=== PATIENT | male | born 1955 | race Caucasian/White ===

== ENCOUNTER 2020-07-18 07:46 | Day surgery (SDC) | payer BC ==
[~2020-07-18] VITALS: Ht 180.3 cm; Wt 58.8 kg
--- NOTE | ~2020-07-18 | HEMODYNAMI ---
PATIENT:CESAR JJ MEDICAL RECORD: [id number] : 57 LOCATION:D.CAT ADMISSION DATE: 07/18/20 Generatedon:110:56 Patient name: CESAR JJ Patient #: [id number] SSN: [id number] : 1955 Date of study: 07/18/2020 Page: Of Hemodynamic Procedure Report Patient Data Patient Demographics Procedure consent was obtained First Name: CESAR Gender: Male Last Name: PARVIZ : 1955 [facility] Initial: ODETTE Age: 65 year(s) Patient #: [id number] Race: SSN: [id number] Additional ID: [id number] Contact details [address]: [address] [place] [address] [place] State: [place] City: [place] Zip code: [address] Past Medical History Allergies: No known allergies Admission Admission Data Admission Date: 07/18/2020 Admission Time: 7:46 Arrival Date: 07/18/2020 Arrival Time: 0:00 Admit Source: Other Insurance Payor: Private health insurance [facility] #: [id number] Height (in.): 24.41 BSA: 1.13 (m2) Height (cm.): 62 BMI: 335.59 (kg/m2) Weight (lbs.): 284.4 Weight (kg.): 129 Lab Results Lab Result Date: 07/18/2020 Lab Result Time: 0:00 Biochemistry Name Units Result Min Max BUN mg/dl 17 --(---*)-- 7 18 Creatinine mg/dl 1.1 --(--*-)-- 0.6 1.3 eGFR ml/min 70.32204 *-(----)-- 90 120 NONAFRICAN CBC Name Units Result Min Max Hematocrit % 40.1 -*(----)-- 42 54 Hemoglobin g/dl 13.8 --(*---)-- 13.5 17.5 Procedure Procedure Types Cath Procedure Sedation Charges Moderate Sedation 55-69 minutes Peripheral Cath Diagnostic Procedure Psych Coordinator Peripheral Procedures AFRO Diagnostic Peripheral vascular Intervention Lithotripsy Litho W Grinder And Honer Operator Automatic Procedure Description Procedure Date Procedure Date: 07/18/2020 Procedure Start Time: 10:01 Procedure End Time: 10:55 Procedure Staff Name Function Pradeep Gamez MD Performing Physician Ashley Rodrigues RT Monitor Betty Francis RT Scrub Xavier Tirado RN Nurse Procedure Data Cath Procedure Fluoroscopy Diagnostic fluoroscopy Total fluoroscopy Time: time: 12.3 min 12.3 min Diagnostic fluoroscopy Total fluoroscopy dose: 117 dose: 117 mGy mGy Contrast Material Contrast Material Type Amount (ml) Isovue 370 100 Entry Location Entry Primary Successful Side Size Upsize Upsize Entry Closure Succes sful Closure Location (Fr) 1 (Fr) 2 (Fr) Remarks Device Remarks Femoral Left 5 Fr 6 Fr 6 Fr Exoseal artery Long Short Estimated blood loss: 10 ml Diagnostic catheters Device Type Used For End Catheter Placement DIAGNOSTIC UF 5Fr Procedure catheter ([id number]) Procedure Complications No complications Procedure Medications Medication Administration Route Dosage Oxygen etCO2 Nasal cannula 2 l/min Lidocaine 2% added to field 20 Heparin Flush Bag added to field 2 bags (1000units/500ml NS) 0.9% NaCl I.V. 100 ml/hr Versed I.V. 1 mg Fentanyl I.V. 50 mcg Versed I.V. 1 mg Fentanyl I.V. 50 mcg Versed I.V. 1 mg Fentanyl I.V. 50 mcg Heparin Bolus I.V. 3000 units Heparin Bolus I.V. 2000 units Versed I.V. 1 mg Fentanyl I.V. 50 mcg Heparin Bolus I.V. 1000 units Plavix P.O. 600 mg Hemodynamics Rest BSA: 1.13 (m2) HGB: 13.8 (g/dl) O2 Consumption: Estimated: 128.6 (ml/min) O2 Con sumption indexed: Estimated:113.81 (ml/min/m) Heart Rate: 62 (bpm) Snapshots Pre Cath Intra NCS Post Cath Vital Signs Time Heart Resp SPO2 etCO2 NIBP (mmHg) Rhythm Pain Sedation Rate (ipm) (%) (mmHg) Status Level (bpm) 9:45:20 62 10 100 0 185/94(155) NSR 0 (11) 10(A) , No pain 9:49:40 61 13 100 34.8 126/73(92) NSR 0 (11) 10(A) , No pain 9:53:56 57 13 100 30.2 126/68(97) NSR 0 (11) 10(A) , No pain 9:58:10 56 13 100 35.5 128/70(99) NSR 0 (11) 10(A) , No pain 10:02:28 58 10 100 31 112/62(73) NSR 0 (11) 9(A) , No pain 10:06:40 59 16 100 33.2 109/58(73) NSR 0 (11) 9(A) , No pain 10:10:50 59 10 100 34.7 107/64(83) NSR 0 (11) 9(A) , No pain 10:15:00 56 12 100 39.3 107/64(80) NSR 0 (11) 9(A) , No pain 10:19:12 59 10 100 37.1 107/56(85) NSR 0 (11) 9(A) , No pain 10:23:22 59 10 100 37.8 100/61(79) NSR 0 (11) 9(A) , No pain 10:28:19 57 12 100 37.1 121/63(94) NSR 0 (11) 9(A) , No pain 10:32:35 62 11 100 37.8 111/57(80) NSR 0 (11) 9(A) , No pain 10:36:44 68 10 100 37.8 117/65(81) NSR 0 (11) 9(A) , No pain 10:40:59 62 14 100 36.3 118/59(85) NSR 0 (11) 9(A) , No pain 10:45:12 63 13 100 36.3 114/62(90) NSR 0 (11) 10(A) , No pain 10:49:26 55 18 100 33.3 107/57(72) NSR 0 (11) 10(A) , No pain 10:53:36 52 11 100 34 120/61(80) NSR 0 (11) 10(A) , No pain Medications Time Medication Route Dose Verified Delivered Reason Notes Effectiveness by by 9:48:13 Oxygen etCO2 2 Pradeep Buffie used for Nasal l/min Franco Tirado circular stuffer cannula 9:48:21 Lidocaine 2% added 20ml Pradeep Pradeep for local to vial Franco Gamez MD anesthetic field 9:51:34 Heparin Flush added 2 Pradeep Pradeep used for Bag to bags Franco Gamez MD procedure (1000units/500ml field NS) 9:51:48 0.9% NaCl I.V. 100 Pradeep Buffie Per physician ml/hr Franco Tirado RN 9:55:43 Versed I.V. 1 mg Pradeep Buffie for sedation Franco Tirado RN 9:55:49 Fentanyl I.V. 50 Pradeep Buffie for sedation mcg Franco Tirado RN 10:03:11 Versed I.V. 1 mg Pradeep Buffie for sedation Franco Tirado RN 10:03:15 Fentanyl I.V. 50 Pradeep Buffie for sedation mcg Franco Tirado RN 10:09:23 Versed I.V. 1 mg Pradeep Buffie for sedation Franco Tirado RN 10:09:27 Fentanyl I.V. 50 Pradeep Buffie for sedation mcg Franco Tirado RN 10:18:10 Heparin Bolus I.V. 3000 Pradeep Buffie for verif ied units Franco Tirado RN anticoagulation with dr gamez 10:24:06 Heparin Bolus I.V. 2000 Pradeep Buffie for verif ied units Franco Tirado RN anticoagulation with dr gamez 10:27:20 Versed I.V. 1 mg Pradeep Buffie for sedation Franco Tirado RN 10:31:40 Fentanyl I.V. 50 Pradeep Buffie for sedation mcg Franco Tirado RN 10:44:51 Heparin Bolus I.V. 1000 Pradeep Buffie for verif ied units Franco Tirado RN anticoagulation with dr gamez 10:53:55 Plavix P.O. 600 Pradeep Buffie for mg Franco Tirado RN antiplatelet therapy Procedure Log Time Note 9:03:21 Arrival Date: 07/18/2020 12:00:00 AM 9:03:38 Admit Source: Other 9:03:43 Insurance Payor : Private health insurance 9:04:57 Patient Height : 24.41 inches 9:05:07 Patient Weight : 284.4 lbs 9:29:04 Betty JOHNSON(R) sent for patient. Start room use. 9:31:06 Lab Result : eGFR NONAFRICAN 70.13462 ml/min 9:31:06 Lab Result : BUN 17 mg/dl 9:: Lab Result : Creatinine 1.1 mg/dl 9:: Lab Result : Hemoglobin 13.8 g/dl 9:31:06 Lab Result : Hematocrit 40.1 % 9:32:13 Informed consent obtained and on chart 9:32:34 Diagnostic Cath Status : Elective 9:32:49 ACC Patient presents with Stable Angina CCS Anginal Class 2--Slight limitation of ordinary activity. 9:32:56 Procedure Status Peripheral. 9:32:58 Time tracking: Regular hours (M-F 7:00 - 5:00) 9:33:02 Plan of Care:Hemodynamics will remain stable., Cardiac rhythm will remain stable., Comfort level will be maintained., Respiratory function will remain adequate., Patient/ family verbilizes understanding of procedure., Procedure tolerated without complication., Recovers from procedure without complications.. 9:33:15 Patient received from Pre/Post Procedure Room to CCL 1 Alert and oriented. Tansferred to table in Supine position. 9:33:16 Warm blankets applied, and madelaine hugger turned on for patient comfort. 9:33:17 Correct patient and procedure confirmed by team. 9:33:17 ECG and BP/O2 sat monitors applied to patient. 9:44:04 Vital chart was started 9:44:05 Full Disclosure recording started 9:44:14 H&P Date Dictated: 06/30/2020 Within 30 days and on chart.. 9:44:15 Pre-procedure instructions explained to patient. 9:44:15 Pre-op teaching completed and patient verbalized understanding. 9:44:17 Family in waiting room. 9:44:19 Patient NPO since Midnight. 9:44:24 Patient allergic to No known allergies 9:44:31 Is the patient allergic to Iodine/contrast media? No. 9:44:32 Was the patient premedicated? Yes 9:44:34 Is patient on blood thinner?No 9:44:36 Patient diabetic? No. 9:44:37 If diabetic: On Metformin? N/A 9:44:39 ----Pre-sedation anethsthesia assessment.---- 9:44:41 Previous problem with sedation/anesthesia? No ? 9:44:42 Snore? Yes 9:44:45 Sleep apnea? No 9:44:46 Deviated septum? No 9:44:47 Opens mouth fully? Yes 9:44:49 Sticks out tongue? Yes 9:44:51 Airway obstruction? No ? 9:44:53 Dentures? No ? 9:44:58 Pre procedure: right dorsailis pedis pulse 1+ Palpable, but thready & weak; easily obliterated 9:45:00 Patient pain scale 0/10 ?. 9:45:05 IV patent on arrival in left antecubital with 0.9% NaCl at [facility]. 9:45:08 Lab results completed and on chart. 9:45:15 Bilateral groins area was prepped with chlora-prep and draped in sterile fashion 9:45:17 Stress Test: no; N/A ? 9:45:19 Alarms reviewed by R. N. 9:45:19 Sharps counted by scrub and verified by R.N. 9:45:23 Use device set Femoral Dx 9:45:24 ACIST Syringe (87742) opened to sterile field. 9:45:25 Bag Decanter (2002S) opened to sterile field. 9:45:25 Medline Cath Pack ([id number]) opened to sterile field. 9:45:26 ACIST Hand Control (46086) opened to sterile field. 9:45:27 ACIST Manifold (80645) opened to sterile field. 9:45:27 DIAGNOSTIC Multipack 5Fr catheter set ([id number]) opened to sterile field. 9:45:29 SHEATH 5FR [place] (CRS841) opened to sterile field. 9:45:29 EMERALD Guide Wire (713-326) opened to sterile field. 9:45:31 Tegaderm 4 x 4 (1626W) opened to sterile field. 9:45:37 Baseline sample Acquired. 9:45:41 Rhythm: sinus rhythm 9:48:13 Oxygen 2 l/min etCO2 Nasal cannula was administered by Xavier Tirado RN; used for procedure; Verbal order read back and verified. 9:48:21 Lidocaine 2% 20ml vial added to field was administered by Pradeep Gamez MD; for local anesthetic; Verbal order read back and verified. 9:51:34 Heparin Flush Bag (1000units/500ml NS) 2 bags added to field was administered by Pradeep Gamez MD; used for procedure; Verbal order read back and verified. 9:51:48 0.9% NaCl 100 ml/hr I.V. was administered by Xavier Tirado RN; Per physician; Verbal order read back and verified. 9:54:44 --------ALL STOP TIME OUT------ 9:54:45 Final Timeout: patient, procedure, and site verified with staff and physician. All members of the team are in agreement. 9:54:51 Bilateral groins site verified by team. 9:54:55 Fire Safety Assessment: A--An alcohol-based skin anteseptic being used preoperatively., C--Open oxygen or nitrous oxide is being used., D--An ESU, laser, or fiber-optic light is being used. 9:54:59 Physical assessment completed. ASA score P 2 - A patient with mild systemic disease as per Pradeep Gamez MD. 9:55:02 2) 60-89 Mildly reduced kidney function, and other findings (as for stage 1) point to kidney disease. 9:55:34 Maximum allowable contrast dose (3.7 X eGFR X 0.75)194 ml. 9:55:37 Sedation plan: IV Moderate Sedation Medication:Versed, Fentanyl 9:55:43 Versed 1 mg I.V. was administered by Xavier Tirado RN; for sedation; Verbal order read back and verified. 9:55:49 Fentanyl 50 mcg I.V. was administered by Xavier Tirado RN; for sedation; Verbal order read back and verified. 9:58:53 Procedure started. 10:01:23 Local anesthetic to left femerol artery with Lidocaine 2% by Pradeep Gamez MD.INITIAL ACCESS ONLY 10:03:11 Versed 1 mg I.V. was administered by Xavier Tirado RN; for sedation; Verbal order read back and verified. 10:03:15 Fentanyl 50 mcg I.V. was administered by Xavier Tirado RN; for sedation; Verbal order read back and verified. 10:03:31 A 5 Fr sheath was inserted into the Left Femoral artery 10:03:37 A DIAGNOSTIC UF 5Fr catheter ([id number]) was advanced over the wire and used for Procedure. 10:05:41 Abdominal Aortagram was performed. 10:05:44 Left leg runoff performed. 10:06:18 Right leg runoff performed. 10:06:26 Injector settings: Ml/sec: 10, Volume: 20, 10:08:51 SHEATH 6FR [place] (ZXR133) opened to sterile field. 10:09:01 TUBING High Pressure Extension Tubing (Franco) ([id number]) opened to sterile field. 10::14 Sheath upsized to a 6 Fr Long. 10::23 Versed 1 mg I.V. was administered by Xavier Tirado RN; for sedation; Verbal order read back and verified. 10::27 Fentanyl 50 mcg I.V. was administered by Xavier Tirado RN; for sedation; Verbal order read back and verified. 10:13:07 Asahi Minamo 300cm wire opened to sterile field. 10:13:47 INFLATOR Merit BasixCompak (MJ7041) opened to sterile field. 10:14:34 asahi minamo 300 wire advanced. 10:14:38 Wire removed. 10:18:10 Heparin Bolus 3000 units I.V. was administered by Xavier Tirado RN; for anticoagulation; verified with dr gamez Verbal order read back and verified. 10:21:20 CXI SUPPORT .035 135 CM STR catheter ([id number]) opened to sterile field. 10:21:59 4 Fr CXI .035 guide catheter was inserted over the wire 10:22:33 CHOICE PT Extra Support J 300cm guide wire ([id number]) opened to sterile field. 10:24:06 Heparin Bolus 2000 units I.V. was administered by Xavier Tirado RN; for anticoagulation; verified with dr gamez Verbal order read back and verified. 10:24:28 Wire removed. 10:24:36 ASHAI MINAMO 300 wire advanced. 10:26:21 Guide catheter removed. 10:27:20 Versed 1 mg I.V. was administered by Xavier Tirado RN; for sedation; Verbal order read back and verified. 10:31:40 Fentanyl 50 mcg I.V. was administered by Xavier Tirado RN; for sedation; Verbal order read back and verified. 10:36:14 Inflate balloon Inflation number: 1 A SHOCKWAVE BALLOON 5.5 X 60 ([id number]) was prepped and advanced across the Mid Superficial Femoral, Right , then inflated to 4 MARIANELA for 0:55 (min:sec) . 10:36:52 Inflation number: 2 The SHOCKWAVE BALLOON 5.5 X 60 ([id number]) was reinflated across the Mid Superficial Femoral, Right , to 4 MARIANELA for 0:30 (min:sec) . 10:38:25 Inflation number: 3 The SHOCKWAVE BALLOON 5.5 X 60 ([id number]) was reinflated across the Mid Superficial Femoral, Right , to 4 MARIANELA for 0:40 (min:sec) . 10:39:13 Inflation number: 4 The SHOCKWAVE BALLOON 5.5 X 60 ([id number]) was reinflated across the Mid Superficial Femoral, Right , to 4 MARIANELA for 0:35 (min:sec) . 10:40:40 Balloon removed over the wire. 10:44:51 Heparin Bolus 1000 units I.V. was administered by Xavier Tirado RN; for anticoagulation; verified with dr gamez Verbal order read back and verified. 10:45:18 Inflation number: 5 The SHOCKWAVE BALLOON 5.5 X 60 ([id number]) was reinflated across the Mid Superficial Femoral, Right , to 4 MARIANELA for 0:44 (min:sec) . 10:46:00 Inflation number: 6 The SHOCKWAVE BALLOON 5.5 X 60 ([id number]) was reinflated across the Mid Superficial Femoral, Right , to 4 MARIANELA for 0:31 (min:sec) . 10:46:26 Balloon removed over the wire. 10:48:29 Wire removed. 10:50:00 EXOSEAL 5Fr (EX500) opened to sterile field. 10:50:21 Sheath upsized to a 6 Fr Short. 10:50:31 Sheath removed intact; hemostasis achieved with Exoseal to the Left Femoral artery. 10:50:38 Fluoroscopy time 12.30 minutes. 10:50:41 Fluoroscopy dose: 117 mGy 10:50:41 Flurop Dose total: 117 10:50:47 Dose Area Product 9103 mGy/cm. 10:50:51 Sharps counted by scrub and verified by R.N. 10:51:12 Contrast amount:Isovue 370 100ml. 10:51:14 Maximum allowable dose exceeded? No. 10:51:35 Procedure ended.(Physican Out) 10:51:50 Post-op/insertion site Left Femoral artery dressed using a 4 x 4 and Tegaderm. 10:51:58 Post left femerol artery:stable, soft, clean and dry 10:52:00 Post Procedure Pulses reassessed and unchanged 10:52:03 Post procedure: right dorsailis pedis pulse 1+ Palpable, but thready & weak; easily obliterated. 10:52:07 Post-procedure physical assessment completed. ASA score P 2 - A patient with mild systemic disease as per Pradeep Gamez MD. 10:52:09 Post procedure rhythm: unchanged. 10:52:12 Estimated blood loss: 10 ml 10:52:13 Post procedure instruction explained to patient.Patient verbalizes understanding. 10:52:14 Patient needs reinforcement of post procedure teaching. 10:53:00 Procedure type changed to Cath procedure, Sedation Charges, Moderate Sedation 55-69 minutes, Peripheral Cath Diagnostic Procedure, Psych Coordinator Peripheral Procedures, AFRO Diagnostic, Peripheral vascular Intervention, Lithotripsy, Litho W Grinder And Honer Operator Automatic 10:53:55 Plavix 600 mg P.O. was administered by Xavier Tirado RN; for antiplatelet therapy; Verbal order read back and verified. 10:55:12 ACT drawn and resulted at 286 seconds. (normal therapeutic range 180-240 seconds). 10:55:12 Procedure and supply charges have been captured, reviewed, submitted and are correct. 10:55:16 Procedure Complication : No complications 10:55:18 Vital chart was stopped 10:55:24 AFRO Findings: PVD: OUTSOLE TACKER performed (see procedure notes) 10:55:26 Operative report dictated upon procedure completion. 10:55:27 See physician's report for complete and final results. 10:55:28 Report given to Pre/Post Procedure Room. 10:55:32 Patient transfered to Pre/Post Procedure Room with Stretcher. 10:55:35 Procedure ended. 10:55:35 Full Disclosure recording stopped 10:55:51 ACC-PCI Only Patient was given prescriptions, or instructed by Pradeep Gamez MD to start/continue the following medications upon discharge: Plavix 10:55:53 End room use (Document Last) 10:56:03 End room use (Document Last) 10:56:23 End room use (Document Last) Intervention Summary Intervention Notes Time ActionType Lesion and Equipment Used Action# Pressure Duration Attributes 10:36:14 Inflate Mid SHOCKWAVE BALLOON 1 4 00:55 balloon Superficial 5.5 X 60 Femoral, ([id number]) Right 10:36:52 Reinflate Mid SHOCKWAVE BALLOON 2 4 00:30 balloon Superficial 5.5 X 60 Femoral, ([id number]) Right 10:38:25 Reinflate Mid SHOCKWAVE BALLOON 3 4 00:40 balloon Superficial 5.5 X 60 Femoral, ([id number]) Right 10:39:13 Reinflate Mid SHOCKWAVE BALLOON 4 4 00:35 balloon Superficial 5.5 X 60 Femoral, ([id number]) Right 10:45:18 Reinflate Mid SHOCKWAVE BALLOON 5 4 00:44 balloon Superficial 5.5 X 60 Femoral, ([id number]) Right 10:46:00 Reinflate Mid SHOCKWAVE BALLOON 6 4 00:31 balloon Superficial 5.5 X 60 Femoral, ([id number]) Right Device Usage Item Name Manufacture Quantity Catalog Number Hospital Part Curr ent Minimal Lot# / Charge Number Stock Stock Serial# Code ACIST Syringe Acist 1 08878 323074 065968 3731 47 20 (07407) [employer] Bag Decanter Microtek 1 214909 42284 9830 28 5 () Medical Inc. Medline Cath Pack Medline 1 [id number] 837112 18718 9854 63 5 ([id number]) ACIST Hand Acist 1 95920 257312 539744 9739 78 5 Control (87035) [employer] ACIST Manifold Acist 1 89032 729911 925500 1855 93 5 (72192) [employer] Inc DIAGNOSTIC Cardinal 1 [id number] 764551 45309 9929 48 30 Multipack 5Fr Health catheter set (YK7752) SHEATH 5FR Terumo 1 [id number] 133002 748069 6605 51 5 [place] (BYV114) EMERALD Guide Cardinal 1 502-455 584384 900634 4860 33 5 Wire (283-223) Health Tegaderm 4 x 4 3M 1 1626W 894663 617422 3844 60 5 (1626W) DIAGNOSTIC UF 5Fr Cardinal 1 [id number] 090979 210490 1209 15 10 catheter Health (395687Y5) SHEATH 6FR Terumo 1 QLI198 527210 841138 9334 41 40 [place] (LFJ086) TUBING High Merit 1 [id number] 197613 89525 9989 42 10 Pressure Medical Extension Tubing (Gamez) (RF9957X) Asahi Minamo Asahi Intecc 1 [id number] 502092 7177376 1099 40 0 300cm wire INFLATOR Merit Merit 1 PX7315 142620 707033 5124 44 15 [facility] (QN1643) CXI SUPPORT .035 Cook Medical 1 I25459 258667 172620 7211 14 5 135 CM STR catheter (L44800) CHOICE PT Extra Clifton 1 [id number] 738877 1964 96 5 Support J 300cm Scientific guide wire (3109435W0) SHOCKWAVE BALLOON SHOCKWAVE 1 [id number] 668567 6982738 9999 997 1 5.5 X 60 MEDICAL ([id number]) EXOSEAL 5Fr Cardinal 1 EX500 817581 693196 7985 74 10 (EX500) Health Signature Audit Vest Stage Time Signature Unsigned Intra-Procedure 07/18/2020 Ashley Rodrigues 10:56:03 AM RT(R) Intra-Procedure 07/18/2020 Xavier Tirado RN 10:56:23 AM Intra-Procedure 07/18/2020 Pradeep Gamez MD 10:56:39 AM [facility] [address] [place] [address]
[2020-07-18 08:25] LABS: BASOPHILS 0.8 % (0-2); HEMATOCRIT 40.1 % (42.0-54.0); HEMOGLOBIN 13.8 g/dL (13.5-17.5); IMMATURE GRANULOCYTES 0.2 % (0-5); LYMPHOCYTE ABS# 1.12 10x3/uL (1.32-3.57); LYMPHOCYTES 22.6 % (15-50); MCH 32.4 pg (26.0-34.0); MCHC 34.4 g/dL (31.0-37.0); MCV 94.1 fL (80.0-100.0); MEAN PLATELET VOLUME 9.6 fL (7.4-10.4); MONOCYTES 7.9 % (2-11); NEUTROPHIL ABS# 3.24 10x3/uL (1.78-5.38); NEUTROPHILS 65.5 % (40-80); PLATELET COUNT 175 10x3/uL (130-400); RBC 4.26 10x6/uL (4.20-6.10); RDW 12.8 % (11.5-14.5)
[2020-07-18 08:35] VITALS: BP 173/77; Ht 180.3 cm; Wt 58.8 kg
[2020-07-18 08:44] LABS: ANION GAP 9.6 mmol/L (8-16); CALCIUM 8.6 mg/dL (8.5-10.1); CARBON DIOXIDE 28.7 mmol/L (21.0-32.0); CHOL - HDL RATIO 1.8 ratio (2.3-4.9); CREATININE - SERUM 1.1 mg/dL (0.6-1.3); LDL-HDL RATIO 0.8 ratio (1.5-3.5); POTASSIUM - SERUM 4.3 mmol/L (3.5-5.1)
[2020-07-18] MEDS ORDERED: LISINOPRIL10 MG PO (08:53)
--- NOTE | 2020-07-18 11:20 | NUR ---
PT ARRIVES TO ROOM 3 VIA STRETCHER AAOX3, PLACED ON MONITORS ALARMS ON SB NO ECTOPY, SEE ESCALATOR MECHANIC, PT DENIES PAIN OR NEEDS, SPOUSE AT BEDSIDE BOTH ARE UPDATED ON PLAN OF CARE AND TIME FRAME, PT EDUCATED ON LAYING SUPINE AND HEAD ON PILLOW. SIDE RAILS UP AND CALL LIGHT WITH IN REACH
--- NOTE | 2020-07-18 11:35 | NUR ---
EYES CLOSED AROUSES EASILY, DENIES PAIN OR NEEDS, SIPS OF SPRITE OFFERED, VSS, SB , IV INFUSING PER ORDERS, LEFT GROIN SOFT NO OOZING OR BLEEDING OPSITE C/D/I, LEFT LOWER EXTREMITY WARM PEDAL PULSE PALPABLE CAP REFILL WNL, MOVES ALL DIGITS, RIGHT LOWER EXTREMITY WARM AND POSTERIOR TIBIAL PULSE PALPABLE , CAP REFILL WNL. CALL LIGHT WITH IN REACH, URINAL PLACED AT BEDSIDE SPOUSE TO ASSIST IF NEEDED
[2020-07-18] MEDS ORDERED: PLAVIX75 MG PO (11:45)
--- NOTE | 2020-07-18 11:55 | NUR ---
PT RESTING QUIETLY, VSS, SB , LEFT GROIN SOFT WITH NO OOZING OR BLEEDING OR PALPABLE HEMATOMA, EXTREMITY WARM WITHOUT PAIN, PEDAL PULSE PALPABLE, IV INFUSING PER ORDERS, PT DENIES PAIN OR NEEDS, PLAN OF CARE REVIEWED WITH SPOUSE AND PT WITH TIME FRAMES FOR LAYING SUPINE, DENIES BATHROOM NEEDS, CALL LIGHT WITHIN REACH.
--- NOTE | 2020-07-18 12:10 | NUR ---
PT REPOSITONED FOR COMFORT, SUPINE WITH HEAD ON PILLOW, VSS, SB, LEFT GROIN OPSITE C/D/I, NO OOZING OR BLEEDING , NO PALPABLE HEMATOMA, EXTREMITY WARM SENSATION INTACT, PEDAL PULSE PALPABLE, IV INFUSING PER ORDERS, DENIES PAIN OR NEEDS AT PRESENT, CALL LIGHT WITHIN REACH
--- NOTE | 2020-07-18 12:40 | NUR ---
NO CHANGE, RESTING QUIETLY, EASILY AROUSED TO VERBAL, VSS, SB, SATS 100 ON RA RESPIRATIONS WITH EASE, LEFT GROIN SOFT WITH NO PALPABLE HEMATOMA , OPSITE C/D/I, PEDAL PULSE PALPABLE, CAP REFILL WNL, IV INFUSING VIA LEFT FA PIV , DENIES PAIN OR NEEDS, CALL LIGHT WITH IN REACH, SIPS OF SPRITE OFFERED.
--- NOTE | 2020-07-18 13:10 | NUR ---
DR WEATHERS AT BEDSIDE TO SEE PT, NO NEW ORDERS RECIEVED
--- NOTE | 2020-07-18 13:40 | NUR ---
PT WATCHING T.V, NO NEEDS OR PAIN, VSS, SB, LEFT GROIN SOFT WITH NO BLEEDING OR OOZING , NO PALPABLE HEMATOMA, PEDAL PULSE PALPABLE, RIGHT AND LEFT LOWER EXTREMITY PINK AND WARM AND CAP REFILL WNL. IV INFUSING PER ORDERS, CALL LIGHT WITH IN REACH
--- NOTE | 2020-07-18 14:10 | NUR ---
PT PLACED IN SEMI FOWLERS POSITION , LEFT GROIN STABLE WITH NO OOZING OR BLEEDING , AREA SOFT WITH OUT PALPABLE HEMATOMA , PEDAL PULSE PALPABLE,IV INFUSING PER ORDERS, DENIES BATHROOM NEEDS, SNACK AND SPRITE SERVED PER PT REQUEST DECLINES SANDWICH AT THIS TIME, DENIES PAIN, CALL LIGHT WITH IN REACH, DISCHARGE TEACHING STARTED, QUESTIONS AND CONCERNS ADDRESSED
--- NOTE | 2020-07-18 14:40 | NUR ---
DISCHARGE TEACHING COMPLETED WITH PT AND SPOUSE AND VERBALIZED UNDERSTANDING. PT UP AND AMBULATES TO BATHROOM VOIDS WITHOUT DIFFICULTY. VSS, SB ON MONITOR, LEFT GROIN SOFT WITH NO OOZING OR BLEEDING NOTED, NO PALPABLE HEMATOMA, PEDAL PULSE IS PALPABLE, PT DENIES PAIN OR NEEDS, LEFT 2OG PIV REMOVED PER ORDERS CATHETER INTACT 2X2 DRESSING APPLIED.
--- NOTE | 2020-07-18 15:00 | NUR ---
PT IS DISCHARGED PER ORDERS, PT HAS NO QUESTIONS OR CONCERNS AT THIS TIME, PT IS TAKEN TO VEHICLE VIA WHEELCHAIR TO CARE OF SPOUSE.
== END 2020-07-18 15:00 | disposition home or self-care (01) ==
LOC: D.CATH 07:46
PROVIDERS: ATTEND Internal Medicine Cardiovascular Disease
DX: I70.211 Atherosclerosis of native arteries of extremities with intermittent claudication, right leg (principal); R93.6 Abnormal findings on diagnostic imaging of limbs; I10 Essential (primary) hypertension; I45.19 Other right bundle-branch block
CPT/HCPCS: 36200; C9764